=== PATIENT | female | born 1995 | race African-American/Black ===

== ENCOUNTER 2021-03-12 10:09 | Emergency (ER) | payer OTHER ==
[2021-03-12 15:59] LABS: SARS-CoV-2 PCR by NAA DETECTED (NotDetected)
== END 2021-03-12 12:42 | disposition home or self-care (01) ==
LOC: ERS 10:09
DX: U07.1 COVID-19 (principal)
CPT/HCPCS: 87804; 99283; U0003; U0005

== ENCOUNTER 2022-01-24 14:51 | Emergency (ER) | payer OTHER | END 2022-01-24 15:40 | disposition left against medical advice (07) | LOC: ERS 14:51 | DX: Z53.21 Procedure and treatment not carried out due to patient leaving prior to being seen by health care provider (principal) ==